=== PATIENT | female | born 1950 | race Caucasian/White ===

== ENCOUNTER 2019-08-30 12:04 | Inpatient (IN) ==
[2019-08-30] MEDS ORDERED: Clindamycin 900 MG/50 ML 900 MG/50 ML IV.SOLN IVPB ONE (12:43)
[2019-08-30] MEDS ORDERED: Ringers Solution, Lactated 1,000 ML IVC SCH ×2 (12:45→18:07)
[2019-08-30] MEDS ORDERED: *HR* Promethazine 25 MG/ML VIAL IVP PRN (13:50)
[2019-08-30] MEDS ORDERED: *HR* HYDROmorphone (PF) 1 MG/ML SYRINGE IVP PRN (13:50)
[2019-08-30] MEDS ORDERED: Ondansetron 4 MG/2 ML VIAL IVP ONE (13:50)
[2019-08-30] MEDS ORDERED: *HR* OxyCODONE Immed Rel 5 MG TABLET PO PRN ×2 (13:50→18:07)
[2019-08-30] MEDS ORDERED: Dexamethasone 4 MG/ML VIAL ONE ×2 (14:46→15:03)
[2019-08-30] MEDS ORDERED: Lidocaine HCL 4 ML Topical Solution (Laryng-O-Jet Kit Sterile Pak) TP ONE (14:46)
[2019-08-30] MEDS ORDERED: Lidocaine -MPF 2% 2 ML VIAL ONE (14:46)
[2019-08-30] MEDS ORDERED: *HR* FentaNYL (PF) 100 MCG/2 ML VIAL ONE (14:46)
[2019-08-30] MEDS ORDERED: *HR* Propofol 200 MG/20 ML VIAL IVP ONE ×2 (14:46→15:39)
[2019-08-30] MEDS ORDERED: Ondansetron 4 MG/2 ML VIAL ONE (14:46)
[2019-08-30] MEDS ORDERED: Ropivacaine/PF 0.5% 30 ML VIAL ONE (15:01)
[2019-08-30] MEDS ORDERED: ROPIVACAINE/PF/NS 0.25% 1 EACH SYRINGE INTRAART ONE (15:01)
[2019-08-30] MEDS ORDERED: Ethanol\\Acetic Acid\\Na Ace\\Ben 1,000 ML IRRIG.SOLN IR ONE (15:30)
[2019-08-30] MEDS ORDERED: *HR* PHENYLEPHRINE 1,000 MCG/10 ML SYRINGE IVP ONE (16:02)
[2019-08-30] MEDS ORDERED: *HR* Succinylcholine 200 MG/10 ML VIAL IVP ONE (16:50)
[2019-08-30 17:44] LABS: Hematocrit 31.8 % (35.3-44.9); Hemoglobin 10.8 g/dL (11.5-15.4)
[2019-08-30] MEDS ORDERED: *HR* Enoxaparin 30 MG/0.3 ML SYRINGE SQ SCH (18:00)
[2019-08-30] MEDS ORDERED: MOM Conc 10 ML UD.LIQ PO PRN (18:07)
[2019-08-30] MEDS ORDERED: Clindamycin 900 MG/50 ML 900 MG/50 ML IV.SOLN IVPB SCH (18:07)
[2019-08-30] MEDS ORDERED: Temazepam 15 MG CAPSULE PO PRN (18:07)
[2019-08-30] MEDS ORDERED: Ondansetron 4 MG/2 ML VIAL IVP PRN (18:07)
[2019-08-30] MEDS ORDERED: Sennosides 8.6 MG TABLET PO PRN (18:07)
[2019-08-30] MEDS ORDERED: *HR* OxyCODONE/APAP 5/325 TABLET PO PRN (18:07)
[2019-08-30] MEDS ORDERED: traMADol 50 MG TABLET PO PRN (18:07)
[2019-08-30] MEDS: Clindamycin 900 MG/50 ML 900 MG/50 ML IV.SOLN IVPB SCH (23:33)
[2019-08-31 05:25] LABS: Hematocrit 35.3 % (35.3-44.9); Hemoglobin 12.6 g/dL (11.5-15.4)
[2019-08-31 05:44] LABS: BUN/Creatinine Ratio 25 (6-26); Blood Urea Nitrogen 18 mg/dL (8-23); Calcium 8.8 mg/dL (8.6-10.3); Carbon Dioxide 26 mEq/L (23-29); Chloride 104 mEq/L (98-107); Glucose 170 mg/dL (70-105); Osmolality,Calculated 290 (280-300); Potassium 4.6 mEq/L (3.5-5.1); Sodium 137 mEq/L (136-145); eGFR For African Americans > 60 (> 60); eGFR For Non-African Americans > 60 (> 60)
[2019-08-31] MEDS ORDERED: *HR* Enoxaparin 30 MG/0.3 ML SYRINGE SQ SCH (06:00)
[2019-08-31] MEDS: Clindamycin 900 MG/50 ML 900 MG/50 ML IV.SOLN IVPB SCH (08:17)
[2019-08-31] MEDS ORDERED: *HR* HYDROcodone/Acet 5/325 mg TABLET PO PRN (11:03)
[2019-08-31 11:33] VITALS: BP 136/79
== END 2019-08-31 13:45 | disposition home health service (06) | DRG 483 ==
LOC: SAMDAY 12:04 → 3NENU 17:47
PROVIDERS: ADMIT Orthopaedic Surgery; ATTEND Orthopaedic Surgery